=== PATIENT | male | born 1960 | race African-American/Black ===

== ENCOUNTER 2021-01-12 03:52 | Emergency (ER) | payer OTHER ==
[~2021-01-12] VITALS: Ht 177.8 cm; Wt 90.7 kg
[2021-01-12 03:57] VITALS: BP 133/100
[2021-01-12 05:21] VITALS: BP 130/98
== END 2021-01-12 05:22 ==
LOC: MED 03:52
DX: M54.2 Cervicalgia (principal); Z02.89 Encounter for other administrative examinations; V89.2XXA Person injured in unspecified motor-vehicle accident, traffic, initial encounter; Y93.89 Activity, other specified; Y92.89 Other specified places as the place of occurrence of the external cause; Y99.8 Other external cause status
CPT/HCPCS: 70450; 71045; 72125; 99285